=== PATIENT | female | born 1970 | race Caucasian/White ===

== ENCOUNTER 2025-01-09 10:36 | Emergency (ER) | payer BC, SELFPAY ==
--- NOTE | ~2025-01-09 | XR_ITS ---
Right ankle Technique: AP, oblique, and lateral views were obtained. Clinical History: Injury Findings: There is acute oblique, minimally/fracture the distal fibula, at and just proximal to the l evel ankle mortise. No other fracture or dislocation seen.. Ankle mortise and other visualized joint spaces are preserved. Lateral soft tissue swelling noted. Impression: Acute fracture the distal fibula, as detailed above. Reviewed, dictated and finalized at location M. Impression: Acute fracture the distal fibula, as detailed above.
--- OUTSIDE RECORDS SUMMARY | 2025-01-09 10:37 | XMS_ITS | Clinical Summary ---
Author Organization [facility] Address [address] [place] [address] Phone Care Team Providers Care Receiving Tank Operator Name Role Phone Martina, Kelli Nancy PAC Primary Care Pro vider Allergies No known active allergies Medications ciclopirox (PENLAC) 8 % Solution Apply nightly until cleared 6 mL 09/20/2022 Active fluconazole (DIFLUCAN) 100 MG Tablet Take 1 Tablet by mouth daily. 30 Tablet 2 09/20/2022 Active Active Problems No known active problems Family History Medical History Relation Name Comments Hypertension Father Relation Name Status Comments Father Alive Mother Alive Social History Tobacco Use Types Packs/Day Years Used Date Smoking Tobacco: Never Smokeless Tobacco: Never Tobacco Cessation:Counseling Given: No Alcohol Use Standard Drinks/Week Comments Yes 0 (1 standard drink = 0.6 oz pur e alcohol) Comments No Sex and Gender Information Value Date Recorded Sex Assigned at Not on file Legal Sex Female 12:23 AM CDT Gender Identity Not on file Sexual Orientation Not on file Last Filed Vital Signs Vital Sign Reading Time Taken Comments Blood Pressure 168/100 09/27/2022 3:59 PM ENVIRONMENTAL TECHNICAL OFFICER Pulse 99 09/27/2022 3:59 PM ENVIRONMENTAL TECHNICAL OFFICER Temperature 36.3 C (97.4 F) 09/27/2022 3:59 PM ENVIRONMENTAL TECHNICAL OFFICER Respiratory Rate 12 09/27/2022 3:59 PM ENVIRONMENTAL TECHNICAL OFFICER Oxygen Saturation 99% 09/27/2022 3:59 PM ENVIRONMENTAL TECHNICAL OFFICER Inhaled Oxygen Concentration - - Weight 69.4 kg (153 lb) 09/27/2022 3:59 PM ENVIRONMENTAL TECHNICAL OFFICER Height 172.7 cm (5' 8) 09/27/2022 3:59 PM ENVIRONMENTAL TECHNICAL OFFICER Body Mass Index 23.26 09/27/2022 3:59 PM ENVIRONMENTAL TECHNICAL OFFICER Plan of Treatment Health Maintenance Due Date Last Done Comments Hepatitis C Virus (HCV) Screening 1972 TdaP Immunization 1972 Hepatitis B Immunization (1 of 3 - 19+ 3-dose series) 1991 Colonoscopy 2017 Colorectal Cancer Screening 2017 Cologuard 2022 Immunochemical Fecal Occult Blood 2022 Pneumococcal Immunization (5 0+ years) (1 of 1 - PCV) 2022 Zoster Immunization (1 of 2) 2022 SARS-COV-2 Immunization (1 - 2023- season) 2024 Influenza Immunization (Seas on Ended) 2025 Respiratory Syncytial Virus (RSV) Immunization (Adult) (1 - 1-dose 75+ series) 2047 Human Papillomavirus (HPV) Immunization Aged Out No longer eligible b ased on patient's age to complete this topic Meningococcal Immunization (ACWY) Aged Out No longer eligible based on patient's age to complete this topic Rotavirus Immunization Aged Out No lo nger eligible based on patient's age to complete this topic Insurance [facility] Care Teams Receiving Tank Operator Relationship Specialty Start Date End Date Kelli Mack PAC [address] [place] [address] PCP - General Physician Mammalogist 09/16/22
--- OUTSIDE RECORDS SUMMARY | 2025-01-09 10:37 | XMS_ITS | Clinical Summary ---
Author Organization [address] Address [address] [place] [id number] Care Team Providers Care Chemical Processing Laborer Name Role Phone No, Physician Primary Care Provider [phone] Allergies No known active allergies Medications No known medications Active Problems Patient Care Coordination No te Formatting of this note migh t be different from the original. No pcp at this time No known active problems Social History Tobacco Use Types Packs/Day Years Used Date Smoking Tobacco: Never Assessed Comments Unknown Sex and Gender Information Value Date Recorded Sex Assigned at Not on file Legal Sex Female 4:40 PM VOCATIONAL TECHNICAL EDUCATION DIRECTOR Gender Identity Not on file Sexual Orientation Not on file Obstetrics History Last Filed Vital Signs Vital Sign Reading Time Taken Comments Blood Pressure 122/86 06/23/2021 9:08 AM VOCATIONAL TECHNICAL EDUCATION DIRECTOR Pulse 90 06/23/2021 9:08 AM VOCATIONAL TECHNICAL EDUCATION DIRECTOR Temperature 36.4 C (97.6 F) 06/23/2021 9:08 AM VOCATIONAL TECHNICAL EDUCATION DIRECTOR Respiratory Rate 16 06/23/2021 9:08 AM VOCATIONAL TECHNICAL EDUCATION DIRECTOR Oxygen Saturation 99% 06/23/2021 9:08 AM VOCATIONAL TECHNICAL EDUCATION DIRECTOR Inhaled Oxygen Concentration - - Weight 72.6 kg (160 lb) 06/23/2021 9:08 AM VOCATIONAL TECHNICAL EDUCATION DIRECTOR Height 172.7 cm (5' 8) 06/23/2021 9:08 AM VOCATIONAL TECHNICAL EDUCATION DIRECTOR Body Mass Index 24.33 06/23/2021 9:08 AM VOCATIONAL TECHNICAL EDUCATION DIRECTOR Plan of Treatment Not on file Insurance [employer] Care Teams Chemical Processing Laborer Relationship Specialty Start Date End Date No, Physician PCP - General 06/22/21
--- OUTSIDE RECORDS SUMMARY | 2025-01-09 10:37 | XMS_ITS | Referral Summary ---
Author Organization [address] Address [address] [place] [id number] Care Team Providers Care Glass Novelty Maker Name Role Phone No, Physician Primary Care Provider [phone] Allergies No known active allergies Medications No [...] on file Legal Sex Female 4:40 PM REMOTE CODERS Gender Identity Not on file Sexual Orientation Not on file Last Filed Vital Signs Vital Sign Reading Time Taken Comments Blood Pressure 122/86 06/23/2021 9:08 AM REMOTE CODERS Pulse 90 06/23/2021 9:08 AM REMOTE CODERS Temperature 36.4 C (97.6 F) 06/23/2021 9:08 AM REMOTE CODERS Respiratory Rate 16 06/23/2021 9:08 AM REMOTE CODERS Oxygen Saturation 99% 06/23/2021 9:08 AM REMOTE CODERS Inhaled Oxygen Concentration - - Weight 72.6 kg (160 lb) 06/23/2021 9:08 AM REMOTE CODERS Height 172.7 cm (5' 8) 06/23/2021 9:08 AM REMOTE CODERS Body Mass Index 24.33 06/23/2021 9:08 AM REMOTE CODERS Plan of Treatment Not on file Insurance [employer] [place] Care Teams Glass Novelty Maker Relationship Specialty Start Date End Date No, Physician PCP - General 06/22/21
[2025-01-09 10:43] VITALS: BP 169/66; PULSE 132; RESP 20; TEMP 36.8; O2SAT 100
--- NOTE | 2025-01-09 11:07 | ED.GENADULT ---
HPI - General Adult General Chief complaint: Extremity Injury, Lower Stated complaint: Right Ankle Injury Source: patient Mode of arrival: ambulatory Limitations: no limitations History of Present Illness HPI narrative: Patient presents for evaluation right pain symptom past night. She accidentally stepped on a pipe while wearing high heels, twisting her ankle in the process. She has no pain at rest but with standing and movement she experiences 2/10 pain in the ankle. She reports associated swelling. She took advil for her symptoms this morning, which seemed to help with swelling. No loss of ROM and no paresthesias. Related Data Home Medications ?Medication ?Instructions ?Recorded ?Confirmed ?Last Taken ?Type No Home Medications 11/07/20 01/09/25 Unknown History Allergies Allergy/AdvReac Type Severity Reaction Status Date / Time No Known Allergies Allergy Verified 01/09/25 10:48 Review of Systems Review of Systems: CONSTITUTIONAL: Denies fever, chills, or sweats. EYES: Denies visual changes, redness, or discharge. ENT: Denies rhinorrhea, congestion, sore throat, or otalgia. CARDIOVASCULAR: Denies chest pain, palpitations, or edema. RESPIRATORY: Denies cough or dyspnea. GASTROINTESTINAL: Denies abdominal pain, nausea, vomiting, or diarrhea. GENITOURINARY: Denies dysuria or hematuria. SKIN: Denies rash or itching. MUSCULOSKELETAL: Reports right ankle swelling. Reports right ankle pain with movement. NEUROLOGIC: Denies headache, numbness, dizziness, or weakness. PSYCHIATRIC: Denies anxiety or depression. [facility] Past Medical History Medical History HSV (herpes simplex virus) infection Type 2 Anxiety Surgical History Surgical History [place] teeth removed Family History Family History Grandparent History of cancer Heart disease Social History Social History Smoking status: Never smoker Alcohol intake: current Drinks per week: 5 Substance use: never Gender identity (if verbalized by the patient): Female Exam Narrative: GENERAL: Well-appearing, well-nourished, and in no acute distress. HEAD: Normocephalic, atraumatic. EYES: PERRLA and EOMI. ENT: Nares clear, no rhinorrhea or epistaxis. Mucous membranes moist. Oropharynx without tonsillar hypertrophy exudate or other lesions. Bilateral TMs pearly bolton nonbulging NECK: Supple. No adenopathy or masses. No carotid bruits or JVD CHEST: Clear to auscultation. No respiratory distress. No wheezes rales or rhonchi HEART: Regular rate and rhythm. No murmur heard. Normal peripheral pulses. ABDOMEN: Soft, nontender, nondistended, normal active bowel sounds. EXTREMITIES: Swelling present to right lateral malleolus. She has tenderness over right lateral malleolus. SKIN: Warm, dry, no rash. NEURO: No focal deficits. Alert and oriented x3. PSYCH: Normal mood and affect. Course Course Emergency Course: This is a 54 year old female who presented for evaluation right ankle pain. X-ray showed right distal fibula fracture. Patient was put into posterior short leg OCL. Post splint NV intact. Follow up with ortho. Patient declined analgesics at discharge. She will borrow crutches so declined crutches to be provided today. Go to the emergency department for intractable pain. Heart rate normalized on my exam. She was tachycardic in triage which she attributed to anxiety that she normally experiences when she has her vital signs taken. Patient in agreement plan of care Level of Care: Express Care Visit Vital Signs Vital signs: Vital Signs Temperature 36.8 C 01/09/25 10:43 Pulse Rate 132 H 01/09/25 10:43 Respiratory Rate 01/09/25 10:43 Blood Pressure 169/66 H 01/09/25 10:43 Pulse Oximetry 100 01/09/25 10:43 Oxygen Delivery Room Air 01/09/25 10:43 Temperature 36.8 C 01/09/25 10:43 Pulse Rate 132 H 01/09/25 10:43 Respiratory Rate 01/09/25 10:43 Blood Pressure 169/66 H 01/09/25 10:43 Pulse Oximetry 100 01/09/25 10:43 Oxygen Delivery Room Air 01/09/25 10:43 Procedures Orthopedic Splinting/Casting Injury #1: Splinting/Casting Date: 01/09/25 Splinting/Casting Time: 12:13 Side: right Lower Extremity Injury Location: ankle Lower Extremity Immobilizer: posterior splint OCL: short leg Pre-Procedure Neuro Vascular Exam: normal Post-Procedure Neuro Vascular Exam: normal Medical Decision Making Vital Signs Vital Signs: Vital Signs Temperature 36.8 C 01/09/25 10:43 Pulse Rate 132 H 01/09/25 10:43 Respiratory Rate 20 01/09/25 10:43 Blood Pressure 169/66 H 01/09/25 10:43 Pulse Oximetry 100 01/09/25 10:43 Oxygen Delivery Room Air 01/09/25 10:43 Temperature 36.8 C 01/09/25 10:43 Pulse Rate 132 H 01/09/25 10:43 Respiratory Rate 20 01/09/25 10:43 Blood Pressure 169/66 H 01/09/25 10:43 Pulse Oximetry 100 01/09/25 10:43 Oxygen Delivery Room Air 01/09/25 10:43 Imaging Data Radiologist's impression: Right ankle Technique: AP, oblique, and lateral views were obtained. Clinical History: Injury Findings: There is acute oblique, minimally/fracture the distal fibula, at and just proximal to the level ankle mortise. No other fracture or dislocation seen.. Ankle mortise and other visualized joint spaces are preserved. Lateral soft tissue swelling noted. Impression: Acute fracture the distal fibula, as detailed above. Discharge Plan Discharge Clinical Impression: Closed fracture of right distal fibula Patient Disposition: Home Condition: Stable Instructions: Antibiotic Form, Ankle Fracture (ED) Additional Instructions: PLEASE USE CRUTCHES TO AMBULATE CALL ORTHO TOMORROW FOR AN APPOINTMENT Patient Language: Malaysian Prescriptions: No Action No Home Medications Follow-up/Referrals: Martina,COY Pereira [Primary Care Provider] - Avel Bailon MD [Physician] - Time of Disposition: 12:10
== END 2025-01-09 12:20 | disposition home or self-care (01) ==
PROVIDERS: Emergency Provider Nurse Practitioner; PCP Physician Assistant
DX: S82.831A Other fracture of upper and lower end of right fibula, initial encounter for closed fracture (principal); W22.8XXA Striking against or struck by other objects, initial encounter
CPT/HCPCS: 29515; 73610; 99214; G0463